=== PATIENT | female | born 1950 | race Caucasian/White ===

== ENCOUNTER → 2017-10-23 | Outpatient (CLI) | payer MEDICARE, OTHER ==
[~2017-10-23] MED LIST: ACETAMINOPHEN-1 EAC1 PO; ADVAIR 100-501 EACH INH; AMOXICILLIN 50500 MG PO; ARIMIDEX PO; CIPRODEX OTIC7.5 ML OTIC; DIOVAN HCT 1601 EACH PO; DIOVAN320 MG; ELIQUIS2.5 MG PO; FLEXERIL PO; HYDROCHLOROTHIA25 M1 PO; IRON325 PO; LISINOPRIL40 MG PO; LO-DOSE ASPIRIN81 M1 PO; LOSARTAN-HCTZ1 EAC2 PO; MEDROLDOSEPACK PO; METFORMIN HCL500 M2 PO; MULTIVITAMINS; NORCO 5-325 TA1 EACH PO; NORVASC10 MG PO; OXYCODONE HCL10 MG PO; POTASSIUM600 MG PO; PRAVACHOL40 MG PO; PROLIA60 MG/1 ML SUBQ; SIMVASTATIN40 MG PO; SYMBICORT80 MCG/4.1 INH; TAPAZOLE5 MG PO; TRAVATAN 0.004%5 ML OPHTHALMIC; TURMERIC500 M2 PO; VENTOLIN HFA INH8 GM INH; VITAMIN B-12500 MCG PO; VITAMIN D3400 UNIT PO; VITCB500GO PO; XALATAN2.5 ML OPHTHALMIC; ZETIA10 MG PO; ZYRTEC10 M2 PO
== END ==
LOC: M.RAD 12:04
DX: J18.9 Pneumonia, unspecified organism (principal)

== ENCOUNTER 2018-05-05 06:07 | Inpatient (IN) | payer MEDICARE, OTHER ==
[2018-04-24 09:20] LABS: ABSOLUTE BASOPHILS 0.1 thou/uL (0.0-0.2); ABSOLUTE EOSINOPHILS 0.4 thou/uL (0.0-0.7); ABSOLUTE LYMPHOCYTES 1.7 thou/uL (0.8-5.3); ABSOLUTE MONOCYTES 0.5 thou/uL (0.0-1.2); BASOPHILS 0.9 %; EOSINOPHILS 4.6 %; HEMATOCRIT 37.3 % (37.0-47.0); HEMOGLOBIN 12.4 gm/dL (12.0-15.0); LYMPHOCYTES 19.4 %; MCH 28.8 pg (26.0-34.0); MCHC 33.1 g/dL (28.0-37.0); MCV 86.9 fL (80.0-100.0); MONOCYTES 6.1 %; MPV 7.7 fl. (7.2-11.1); NUCLEATED RBCS 0 /100WBC; PLATELET COUNT* 331 thou/uL (150-400); RDW-CV 15.4 % (10.5-14.5); WBC 8.7 thou/uL (4.0-11.0)
[2018-04-24 09:52] LABS: ALBUMIN 3.8 g/dL (3.4-5.0); POTASSIUM 4.6 mmol/L (3.5-5.1); TOTAL BILIRUBIN 0.3 mg/dL (<0.1-1.0); TOTAL PROTEIN 7.6 g/dL (6.4-8.2)
[2018-04-24 10:25] LABS: APTT 23.6 Seconds (25.0-31.3); INR 0.9
--- NOTE | 2018-04-24 11:44 | EKG ---
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
[2018-04-24 13:20] LABS: ESR (SEDRATE) 18 mm/hr (0-30)
[2018-04-25 02:07] LABS: GLYCOHEMOGLOBIN (HGB A1C) 5.3 % (4.8-5.6)
[~2018-05-05] VITALS: Ht 157.5 cm; Wt 83.9 kg
[~2018-05-05 06:07] MED LIST changes: -ELIQUIS2.5 MG PO; -LOSARTAN-HCTZ1 EAC2 PO; -OXYCODONE HCL10 MG PO
[2018-05-05] MEDS ORDERED: LOSARTAN-HCTZ1 EAC2 PO (06:18)
[2018-05-05 06:48] VITALS: BP 146/65
[2018-05-05 11:55] VITALS: BP 130/60
[2018-05-05 16:40] VITALS: BP 135/54
[2018-05-06 00:24] VITALS: BP 124/53
[2018-05-06 03:51] VITALS: BP 125/60
[2018-05-06 04:19] LABS: HEMOGLOBIN 9.6 gm/dL (12.0-15.0)
[2018-05-06 15:29] VITALS: BP 147/55
[2018-05-07] VITALS: BP 110/59
[2018-05-07 04:00] VITALS: BP 147/62
[2018-05-07 04:23] LABS: HEMATOCRIT 28.6 % (37.0-47.0); HEMOGLOBIN 9.5 gm/dL (12.0-15.0)
[2018-05-07 11:50] VITALS: BP 147/62
[2018-05-07] MEDS ORDERED: ELIQUIS2.5 MG PO (11:50)
[2018-05-07] MEDS ORDERED: OXYCODONE HCL10 MG PO (11:54)
[2018-05-07 11:55] VITALS: BP 147/62
[2018-05-07 11:59] VITALS: BP 147/62
--- NOTE | 2018-05-29 17:43 | OP ---
[address] [address] OPERATIVE REPORT Name: NICJAZMINLEIDYKWAME LINN Room: [address] M.R.#: [id number] Admission: 05/05/18 Attend Phys: Marilu Osman Discharge: 05/07/18 Date of : 50 Report #: [id number] THIS REPORT FOR: //name// CC: Jake Pollock DICTATED BY: Baljeet Wetzel DO DATE OF SERVICE: 05/05/2018 PREOPERATIVE DIAGNOSIS: Right knee degenerative joint disease. POSTOPERATIVE DIAGNOSES: Right knee degenerative joint disease. OPERATIVE PROCEDURE: Right total knee arthroplasty utilizing the Biomet Vanguard total knee system with the following components: 1. A 71 mm fixed cruciate tibial tray. 2. Size 60 mm CR right femoral component. 3. A 28 mm asymmetrical patella component. 4. A 12 mm tibial bearing. SURGEON: Darinel Cao DO PLATE SETTER: Baljeet Wetzel DO ANESTHESIA: General with a nerve block performed by anesthesia. ESTIMATED BLOOD LOSS: 125 mL. ANTIBIOTICS: 2 grams Ancef IV preoperatively. SPECIMENS: None. COMPLICATIONS: None. DISPOSITION: Stable to PACU and will be admitted to the hospital for standard postoperative care. INDICATION FOR PROCEDURE: The patient is a pleasant 68-year-old female who was seen in Orthopedic Clinic with complaints of chronic right knee pain for much greater than 6 months' duration. She had advanced DJD noted on radiographs. Pain was refractory to conservative measures consisting of oral anti-inflammatories, activity modifications, home physical therapy exercises, [address] [place] [address] OPERATIVE REPORT Name: LEIDY BARNHART Room: [address] R.#: [id number] Admission: 05/05/18 Attend Phys: Marilu Osman Discharge: 05/07/18 Date of : 50 Report #: [id number] and intra-articular corticosteroid injections for much greater than 6 months' duration. Thus, we recommended proceeding with a right total knee arthroplasty. Risks, benefits, complications, indications, and alternative treatments were discussed and the patient wished to proceed with surgery today. DESCRIPTION OF PROCEDURE: The patient was seen in preoperative holding area. Correct operative site, right knee, was initialed. The patient was taken back to operating suite, placed in supine position on the operating table, given benefit of general anesthetic. A well-padded tourniquet was placed to the right upper thigh. Right lower extremity was then prepped and draped in typical fashion. Surgery began with a timeout for identifying patient, correct procedure, correct operative site, preoperative antibiotics, and correct performing surgeon. Next, standard anterior midline incision was made directly over the right knee starting roughly 3 to 4 cm proximal to the superior pole of patella extending down to the tibial tubercle. Subcutaneous tissues were sharply incised as well with the 10-blade scalpel down to the level of the prepatellar fascia. Next, standard medial parapatellar arthrotomy was performed with a new 10-blade scalpel. Patella was everted. Proximal medial and to a lesser extent lateral subperiosteal tibial sleeves were developed. Again, patella was everted and knee was flexed. Intramedullary femoral drill was introduced into the femoral canal in normal fashion followed by insertion of the intramedullary distal femoral cutting guide set at 11 mm resection and 5 degrees of valgus. Cutting block was pinned into place. Distal femoral cut was carried out in normal fashion. Next, extramedullary tibial guide was positioned in place over the medial third of the tibial tubercle, tibial crest, along with the center of the talus and second metatarsal. Measured 10 mm resection off the high lateral side. Cutting block was pinned into place and then was shifted to about 2 mm to measure an 8 mm tibial resection. This was taken out and an oscillating saw was used to make the proximal tibia cut. All bony debris removed in normal fashion. Next, a size 10 mm spacer block was inserted. The patient has got full extension and was rather symmetric with varus and valgus stress testing. Next, AP sizer was used to measure the size of our distal femur and drill holes were drilled at 3 degrees of rotation. A 4-in-1 cutting block was impacted on the distal aspect of the femur. Anterior and posterior chamfer cuts were performed in normal fashion. All bony debris was removed. Menisci were excised with electrocautery. Tibial trial component was pinned into place followed by impaction of the femoral trial component. A 10 mm spacer was first inserted followed by 12 mm polyethylene spacer, which the patient had full extension, full range of motion and was stable at 90 degrees to anterior and posterior drawer testing and symmetric varus and valgus stability. Next, patella was reamed using the Elana patellar reamer in the normal fashion and was sized to the appropriate size patella component, was drilled in the normal fashion and patellar component was inserted on the back surface of the patella. The patella seemed to be tracking appropriately. Next, knee was flexed[place] [address] OPERATIVE REPORT Name: LEIDY BARNHART Room: [address]#: [id number] Admission: 05/05/18 Attend Phys: Marilu Osman Discharge: 05/07/18 Date of : 50 Report #: [id number] and drilled in the normal fashion. All trial components were removed. Bony surfaces were thoroughly irrigated. Final components were then impacted into place utilizing bone cement as well in the normal fashion. All excess cement was removed. Started first with the final tibial component followed by the femoral component. We inserted the final 12 mm polyethylene spacer, which was locked in place with the typical tibial locking bar. Patellar component was impacted and held in place with a patellar clamp. Next, knee was held in extension for a couple of minutes and then flexed to roughly 90 degrees. Standard vancomycin powder was placed in the knee and knee was thoroughly irrigated one last time. Capsular layer was closed in a [id number] fashion with a few #1 Vicryl sutures followed by running #1 barbed Stratafix suture. Subcutaneous tissues were closed in a simple inverted fashion with 2-0 Monocryl suture and running subcuticular 3-0 Stratafix was used followed by Dermabond skin glue. Standard dressings were applied consisting of Mepilex thigh-high TANA hose. The patient was weaned from general anesthetic, transferred in stable condition to the PACU. All sponge and needle counts were correct times 2. <ELECTRONICALLY SIGNED> By: Darinel Cao DO 05/29/18 1743 1253 [id number] Cao DO /nile
== END 2018-05-07 12:20 | disposition home health service (06) | DRG 470 ==
LOC: M.TBA 06:07 → M.ORTHSURG 06:07 → M.PRE 06:30 → M.ORTHSURG 10:51 → M.PRE 13:23 → M.ORTHSURG 05-07 12:20
PROVIDERS: Orthopaedic Surgery; ADMIT Internal Medicine
PROC: 0SRC0J9 Replacement of Right Knee Joint with Synthetic Substitute, Cemented, Open Approach (ICD-10-PCS; principal; 2018-05-05)
DX: M17.11 Unilateral primary osteoarthritis, right knee (principal); E11.9 Type 2 diabetes mellitus without complications; E89.0 Postprocedural hypothyroidism; E05.00 Thyrotoxicosis with diffuse goiter without thyrotoxic crisis or storm; Z90.49 Acquired absence of other specified parts of digestive tract; Z90.710 Acquired absence of both cervix and uterus; Z79.82 Long term (current) use of aspirin; Z79.84 Long term (current) use of oral hypoglycemic drugs; Z79.899 Other long term (current) drug therapy

== ENCOUNTER 2019-04-27 06:01 | Inpatient (IN) | payer MEDICARE, OTHER ==
[2019-04-22 10:12] LABS: ABSOLUTE BASOPHILS 0.1 thou/uL (0.0-0.2); ABSOLUTE EOSINOPHILS 0.2 thou/uL (0.0-0.7); ABSOLUTE LYMPHOCYTES 1.4 thou/uL (0.8-5.3); ABSOLUTE MONOCYTES 0.6 thou/uL (0.0-1.2); BASOPHILS 0.7 %; EOSINOPHILS 2.7 %; HEMATOCRIT 37.7 % (37.0-47.0); HEMOGLOBIN 12.3 gm/dL (12.0-15.0); LYMPHOCYTES 15.3 %; MCHC 32.6 g/dL (28.0-37.0); MPV 7.2 fl. (7.2-11.1); NUCLEATED RBCS 0 /100WBC; PLATELET COUNT* 366 thou/uL (150-400); POLYS 75.3 %; RBC 4.38 mil/uL (4.20-5.00); WBC 9.3 thou/uL (4.0-11.0)
[2019-04-22 10:30] LABS: APTT 22.4 Seconds (25.0-31.3); INR 0.9; PROTIME 9.5 Seconds (9.20-11.50)
[2019-04-22 10:32] LABS: CALCIUM 9.9 mg/dL (8.5-10.1); CREATININE 0.9 mg/dL (0.6-1.3); POTASSIUM 3.9 mmol/L (3.5-5.1)
[2019-04-22 10:56] LABS: ALBUMIN 3.9 g/dL (3.4-5.0); TOTAL BILIRUBIN 0.4 mg/dL (<0.1-1.0); TOTAL PROTEIN 7.9 g/dL (6.4-8.2)
[2019-04-22 11:21] LABS: ESR (SEDRATE) 22 mm/hr (0-30)
--- NOTE | 2019-04-22 12:37 | EKG ---
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1950 Requested By: Darinel Cao Order Number: [id number] Reading MD: Thomas Escamilla Measurements Intervals [place] Rate: 79 P: 65 MA: 165 QRS: 57 QRSD: 98 T: 89 QT: 361 QTc: 414 Interpretive Statements Sinus rhythm Nonspecific T abnormalities, lateral leads Compared to ECG 04/24/2018 09:35:41 T-wave abnormality now present Electronically Signed On 04-22-2019 12:37:37 CDT by Thomas Escamilla [email or web address] <ELECTRONICALLY SIGNED> By: Thomas Escamilla MD, [facility] 04/22/19 1237 [id number] 0957 Thomas Escamilla MD, FACC /EPI
[2019-04-23 02:06] LABS: GLYCOHEMOGLOBIN (HGB A1C) 6.1 % (4.8-5.6)
[~2019-04-27] VITALS: Ht 157.5 cm; Wt 83.9 kg
--- NOTE | ~2019-04-27 | OP ---
[address] [place] [address] OPERATIVE REPORT Name: LEIDY BARNHART Room: [address] M.R.#: [id number] Admission: 04/27/19 Attend Phys: Marilu Osman Discharge: Date of : 50 Report #: [id number] THIS REPORT FOR: //name// CC: Darinel Pollock DICTATED BY: Carlos A Carcamo DO DATE OF SERVICE: 04/27/2019 PREOPERATIVE DIAGNOSIS: Left knee advanced degenerative joint disease. POSTOPERATIVE DIAGNOSIS: Left knee advanced degenerative joint disease. SURGERY PERFORMED: Left total knee arthroplasty. SURGEON: Darinel Cao DO CHAIN SAW DRIVER: BRYANNA Loja SECOND IDENTIFICATION CLERK: Carlos A Carcamo DO ANESTHESIA: General with peripheral nerve block. ESTIMATED BLOOD LOSS: 50 mL. TOURNIQUET: 43 minutes at 295 mmHg. ANTIBIOTICS: 2 g Ancef IV preoperatively. SPECIMENS: None. COMPLICATIONS: None. CONDITION: Stable. DISPOSITION: To PACU, to be admitted to the hospital for standard postoperative care. INDICATIONS: The patient is a pleasant 69-year-old female who has been followed in the outpatient orthopedic clinic regarding longstanding left knee pain. X-rays have been consistent with advanced degenerative joint disease. Symptoms have been refractory to conservative measures consisting of oral anti-inflammatories, activity modifications, home physical therapy exercises and intraarticular corticosteroid injections for more than 3 months. We have thus [facility] [address] [place] [address] OPERATIVE REPORT Name: LEIDY BARNHART Room: [address] IN .R.#: [id number] Admission: 04/27/19 Attend Phys: Marilu Osman Discharge: Date of : 50 Report #: [id number] recommended proceeding with left total knee arthroplasty. Risks, benefits, complications and alternatives to the procedure were discussed with the patient in detail and she wished to proceed. She has previously undergone right total knee arthroplasty and has done well. DESCRIPTION OF PROCEDURE: The patient was transferred to the operating suite and placed on the operating table in the supine position. She was given the benefit of general anesthesia. A well-padded pneumatic tourniquet was placed on the left proximal thigh. The left lower extremity was then prepped and draped in the usual sterile fashion. A timeout was taken to confirm the appropriate patient identification, operative site and procedure to be performed. All in the room were in agreement with this timeout. Surgery began by performing an anterior midline incision over the knee. Sharp dissection was carried down to the level of joint capsule and quadriceps tendon. A new scalpel blade was then used to perform a medial parapatellar arthrotomy. A periosteal sleeve was developed along the medial aspect of the tibia. The knee was then flexed and the patella was everted. The infrapatellar fat pad was partially excised sharply. Hohmann retractors were placed and the femoral drill was used to gain access to the femoral canal. The extramedullary guide was then inserted with the distal femoral cutting block in place. This was set to 5 degrees of valgus and to resect 10 mm of bone. The distal femoral cutting block was pinned into place. Distal femoral cut was then performed through the cutting block. Attention was then addressed to the tibia, where the extramedullary guide was used. The proximal tibia cutting block was pinned into place, referencing the medial third of the tibial tubercle, the tibial crest and the middle of the talus. It was pinned in place, set to resect 10 mm of bone off the high lateral side. The cutting block was then moved up 2 mm in order to resect the appropriate amount of bone. Proximal tibial cut was then performed through the cutting block. Through all of our bony cuts, retractors were used to protect vital structures. After the tibial cut, proximal tibial cut was made. The extension block was then checked at 10 mm and noted to be well balanced and in full extension. Attention was then redressed back to the femur where the AP sizer was used to measure the distal femur. This was measured appropriately to a size 62.5 femur. The cutting block holes were drilled in 3 degrees of external rotation off the posterior condylar axis. Cutting block was then malleted and pinned into place. Anterior, posterior and chamfer cuts were then performed through the 4-in-1 cutting block. Excess bone was removed. Electrocautery was then used to excise the medial and lateral menisci as well as the ACL. The PCL was noted to be healthy and intact and was left in place. The tibia was then sized to an appropriate size of a 67. The 67 tibial tray and the trial femoral component were then positioned. A trial 12-mm spacer block was checked, noted to achieve [address] [place] [address] OPERATIVE REPORT Name: LEIDY BARNHART Room: [address] M.R.#: [id number] Admission: 04/27/19 Attend Phys: Marilu Osman Discharge: Date of : 50 Report #: [id number] good extension with good balance to varus and valgus stress. There was good stability through extension, mid flexion and full flexion. There was an appropriate anterior drawer test. The patella was then everted again and reamed using this cylindrical reaming system. This was measured to be a size 28 patella. The patellar peg holes were drilled and the patellar trial component was placed. The knee was again taken through range of motion, the patella was noted to track well. The trial components were then removed. The tibia was drilled and punched through the tibial tray. The knee was then irrigated using pulsatile lavage. Cement was mixed on the back table. Cement was then applied to backside of the implants as well as the cut surfaces of bone. The final implants were malleted in position. A 12 mm insert was again trialed and found to be appropriate in flexion, mid flexion and extension. There was good balance to varus and valgus stress as well as anterior and posterior drawer. Final 12 mm polyethylene was inserted. The knee was held in flexion and allowed for the cement to dry. The capsule was then closed using #1 Vicryl followed by a #2 running Stratafix. Subcutaneous tissue was closed using 2-0 Monocryl. Final skin closure was performed using a running 3-0 Stratafix and skin glue. The patient tolerated the procedure well. Sterile dressings were applied and the patient was transferred to PACU in stable condition. ATTESTATION: Dr. Cao was present and scrubbed in through the entirety of the procedure. Needle and sponge counts were correct at the end of procedure x 2. ORTHOPEDIC IMPLANTS: The vufind total knee arthroplasty system was utilized with the following components: 1. Size 62.5 CR femoral component. 2. Size 67 tibial tray. 3. A 12 mm polyethylene insert. 4. A 28 mm all-polyethylene patellar button. By: [id number] Richar Cao DO /nile
[~2019-04-27 06:01] MED LIST changes: +ELIQUIS2.5 MG PO; +IBUPROFEN 200200 M1 PO; +LOSARTAN-HCTZ1 EAC2 PO; +MAGNESIUM-VIT1 EAC1 PO; +OMEPRAZOLE 20 M20 M1 PO; +OXYCODONE HCL10 MG PO; +PULMICORT0.25 MG/3 INH
[2019-04-27 07:23] VITALS: BP 132/62
[2019-04-27 16:38] VITALS: BP 127/48
[2019-04-27 20:30] VITALS: BP 115/64
[2019-04-28 00:05] VITALS: BP 115/55
[2019-04-28 03:39] VITALS: BP 145/86
[2019-04-28 03:51] LABS: HEMATOCRIT 30.3 % (37.0-47.0); HEMOGLOBIN 9.7 gm/dL (12.0-15.0)
[2019-04-28 08:00] VITALS: BP 125/47
[2019-04-28 14:39] VITALS: BP 125/47
[2019-04-28] MEDS ORDERED: TRAMADOL 50 MG50 MG PO (16:17)
[2019-04-28] MEDS ORDERED: OXYCODONE HCL 55 MG PO (16:17)
[2019-04-28] MEDS ORDERED: ELIQUIS2.5 MG PO (16:18)
== END 2019-04-28 16:15 | disposition home health service (06) | DRG 470 ==
LOC: M.SUR 06:01 → M.TBA 09:32 → M.ORTHSURG 09:32 → M.SUR 13:33 → M.ORTHSURG 04-28 16:15
PROVIDERS: Orthopaedic Surgery; ADMIT Internal Medicine
PROC: 0SRD0J9 Replacement of Left Knee Joint with Synthetic Substitute, Cemented, Open Approach (ICD-10-PCS; principal; 2019-04-27)
DX: M17.12 Unilateral primary osteoarthritis, left knee (principal); D62 Acute posthemorrhagic anemia; I10 Essential (primary) hypertension; E11.9 Type 2 diabetes mellitus without complications; J45.909 Unspecified asthma, uncomplicated; Z96.651 Presence of right artificial knee joint; Z90.49 Acquired absence of other specified parts of digestive tract; Z90.710 Acquired absence of both cervix and uterus; Z98.42 Cataract extraction status, left eye; Z79.82 Long term (current) use of aspirin; Z79.84 Long term (current) use of oral hypoglycemic drugs; Z79.899 Other long term (current) drug therapy; Z88.8 Allergy status to other drugs, medicaments and biological substances

== ENCOUNTER 2020-06-28 12:34 | Emergency (ER) | payer OTHER, MEDICARE ==
[~2020-06-28] VITALS: Ht 157.5 cm; Wt 86.2 kg
[~2020-06-28 12:34] MED LIST changes: +OXYCODONE HCL 55 MG PO; +TRAMADOL 50 MG50 MG PO
[2020-06-28] MEDS ORDERED: FLEXERIL PO (15:39)
[2020-06-28 15:51] VITALS: BP 128/72
== END 2020-06-28 15:52 | disposition home or self-care (01) ==
LOC: M.ERS 12:34
DX: S01.112A Laceration without foreign body of left eyelid and periocular area, initial encounter (principal); S60.222A Contusion of left hand, initial encounter; S80.02XA Contusion of left knee, initial encounter; Z79.899 Other long term (current) drug therapy; Z79.82 Long term (current) use of aspirin; Z90.710 Acquired absence of both cervix and uterus; Z90.49 Acquired absence of other specified parts of digestive tract; W18.39XA Other fall on same level, initial encounter; Y93.89 Activity, other specified; Y92.89 Other specified places as the place of occurrence of the external cause; Y99.8 Other external cause status

== ENCOUNTER → 2021-05-22 | Outpatient (CLI) | payer MEDICARE, OTHER | LOC: M.RAD 12:02 | PROVIDERS: ATTEND Registered Nurse Diabetes Educator | DX: S33.100A Subluxation of unspecified lumbar vertebra, initial encounter (principal); M54.5 Low back pain; M46.04 Spinal enthesopathy, thoracic region; X58.XXXA Exposure to other specified factors, initial encounter; Y93.89 Activity, other specified; Y92.89 Other specified places as the place of occurrence of the external cause; Y99.8 Other external cause status ==